=== PATIENT | male | born 1950 | race Caucasian/White ===

== ENCOUNTER 2020-11-07 09:53 | Day surgery (SDC) | payer MEDICARE, BC ==
[~2020-11-07] VITALS: Ht 172.7 cm; Wt 98.9 kg
[2020-11-07] MEDS ORDERED: NAPR220 (10:47)
[2020-11-07] MEDS ORDERED: ATOR10 (10:48)
--- NOTE | 2020-11-07 11:35 | NUR ---
11/07/20 1135 Aaliyah Hassan PT.GIVEN DISCHARGE INSTRUCTIONS FOR GOING HOME. PT.VERBALIZES UNDERSTANDING. PT. VERBALIZES LIVING IN [place] SO WILL CALL HIS TO COME [facility] TO GET FILLED.
--- NOTE | 2020-11-07 12:13 | NUR ---
11/07/20 1213 Armando Carey 1 MG EPI ADDED TO EACH OF THE FIRST 3 BAGS OF LR FOR IRRIGATION PER ORDER.
--- NOTE | 2020-11-07 14:31 | NUR ---
11/07/20 1431 Trinidad Thompson LATE ENTRY: PT DENIED ANY PAIN OR NAUSEA. VS WNL. PT SMILING AND MAKING JOKES IN THE ROOM. PT UNDERSTOOD GOING HOME INTRUCTIONS.
== END 2020-11-07 14:28 | disposition home or self-care (01) ==
LOC: ORSCSDS 09:53
PROVIDERS: Orthopaedic Surgery
PROC: 0LQ14ZZ Repair Right Shoulder Tendon, Percutaneous Endoscopic Approach (ICD-10-PCS; principal; 2020-11-07 11:30)
PROC: 0RNJ4ZZ Release Right Shoulder Joint, Percutaneous Endoscopic Approach (ICD-10-PCS; principal; 2020-11-07 11:30)
PROC: 0RBJ4ZZ Excision of Right Shoulder Joint, Percutaneous Endoscopic Approach (ICD-10-PCS; principal; 2020-11-07 11:30)
DX: M75.121 Complete rotator cuff tear or rupture of right shoulder, not specified as traumatic (principal); M75.21 Bicipital tendinitis, right shoulder; M75.41 Impingement syndrome of right shoulder; I10 Essential (primary) hypertension; G47.33 Obstructive sleep apnea (adult) (pediatric); Z79.899 Other long term (current) drug therapy
CPT/HCPCS: A9270; C1713; J0171; J0690; J1100; J2250; J2405; J2704; J3010

== ENCOUNTER 2021-07-10 07:45 | Day surgery (SDC) | payer MEDICARE, BC ==
[~2021-07-10] VITALS: Ht 172.7 cm; Wt 100.0 kg
[~2021-07-10 07:45] MED LIST: ATOR10 PO; DOXY100 PO; FOLI1 PO; GLUCHON PO; METTREX2.5 PO; NAPR220
[2021-07-10] MEDS ORDERED: NAPR500 PO (08:21)
--- NOTE | 2021-07-10 13:35 | NUR ---
PT TO RECOVERY ROOM POST PROCEDURE. PT AWAKE AND CONVERSING APPROPRIATELY, DENIES PAIN POST PROCEDURE. MONITOR SR 70-80'S, B/P 136/85, AFEBRILE, SPO2 96% RA. R GROIN NO SWELLING/HEMAOTMA, TEGADERM DRSG INTACT; ANGIO SEAL DEPLOYED, BLE PULSES 1+ X 2. PT TAKING SIPS OF FLUIDS WITHOUT ISSUE.
[2021-07-10] MEDS ORDERED: CLOP75 PO (14:10)
[2021-07-10] MEDS ORDERED: XARELTO PO (14:10)
--- NOTE | 2021-07-10 14:51 | NUR ---
PT HOB ELEVATED, SITES UNCHANGED. PT EATING LUNCH WITHOUT ISSUE.
--- NOTE | 2021-07-10 15:51 | NUR ---
PT AMB TO BATHROOM, GAIT STEADY; SITES UNCHANGED WITH ACTIVITY.
--- NOTE | 2021-07-10 16:05 | NUR ---
PT DRESSED SELF WITHOUT ISSUE, SITE UNCHANGED; IV REMOVED-CANNULA INTACT.
--- NOTE | 2021-07-10 16:20 | NUR ---
PT RECEIVED DISCHARGE INSTRUCTIONS, MED LIST AND AFTER CARE INSTRUCTIONS; VERBALIZED GOOD UNDERSTANDING. PT LEFT FACILITY VIA W/C, CONDITION STABLE.
== END 2021-07-10 16:20 | disposition home or self-care (01) ==
LOC: MHTC 07:45
DX: I73.9 Peripheral vascular disease, unspecified (principal); I70.203 Unspecified atherosclerosis of native arteries of extremities, bilateral legs; I10 Essential (primary) hypertension; Z88.8 Allergy status to other drugs, medicaments and biological substances
CPT/HCPCS: 37221; 75716; 75774; 76937; 99152; 99153; A9270; C1725; C1760; C1769; C1874; C1876; C1887; C1894; C2623; C9767; J1644; J2250; J3010; J7030; J7050; Q9967

== ENCOUNTER 2023-06-19 08:28 | Day surgery (SDC) | payer MEDICARE, BC ==
[~2023-06-19] VITALS: Ht 172.7 cm; Wt 98.3 kg
[~2023-06-19 08:28] MED LIST changes: -ATOR10 PO; +ATOR40TA PO; +Aspir 8181 MG PO; +CLOBETASOL EMOL15 G1 TOP; +CLOP75 PO; +Co Q-1030 MG PO; +KETOROLAC TROMET5 ML; +NAPR500 PO; +OFLOXACIN5 M9; +PRED FORTE5 M1; +XARELTO PO
--- NOTE | 2023-06-19 09:41 | NUR ---
06/19/23 0941 Jacqueline Mckenna PROPRACAINE AT 0939 PLEDGET AT 0941
--- NOTE | 2023-06-19 10:25 | NUR ---
06/19/23 1025 Vania Brown 2 DROPS OF PROPARACAINE GIVEN IN PREOP BY DR. BARRON
[2023-06-19 10:51] VITALS: BP 131/79
== END 2023-06-19 11:09 | disposition home or self-care (01) ==
LOC: ORSCSDS 08:28
PROVIDERS: Ophthalmology
PROC: 08RJ3JZ Replacement of Right Lens with Synthetic Substitute, Percutaneous Approach (ICD-10-PCS; principal; 2023-06-19 10:00)
DX: H25.11 Age-related nuclear cataract, right eye (principal); H52.201 Unspecified astigmatism, right eye; G47.33 Obstructive sleep apnea (adult) (pediatric); E78.5 Hyperlipidemia, unspecified; I10 Essential (primary) hypertension; Z79.82 Long term (current) use of aspirin; Z79.899 Other long term (current) drug therapy
CPT/HCPCS: J2250; J3010; J3301; J7040; V2632

== ENCOUNTER 2023-06-26 06:42 | Day surgery (SDC) | payer MEDICARE, BC ==
[~2023-06-26] VITALS: Ht 172.7 cm; Wt 95.7 kg
[2023-06-26 08:20] VITALS: BP 125/79
== END 2023-06-26 08:49 | disposition home or self-care (01) ==
LOC: ORSCSDS 06:42
PROVIDERS: Ophthalmology
PROC: 08RK3JZ Replacement of Left Lens with Synthetic Substitute, Percutaneous Approach (ICD-10-PCS; principal; 2023-06-26 08:00)
DX: H25.12 Age-related nuclear cataract, left eye (principal); Z96.1 Presence of intraocular lens; G47.33 Obstructive sleep apnea (adult) (pediatric); E78.5 Hyperlipidemia, unspecified; I10 Essential (primary) hypertension; E66.9 Obesity, unspecified; Z68.32 Body mass index [BMI] 32.0-32.9, adult; Z87.891 Personal history of nicotine dependence; Z79.82 Long term (current) use of aspirin; Z79.899 Other long term (current) drug therapy
CPT/HCPCS: J2001; J2250; J3010; J3301; J7040; V2632

== ENCOUNTER → 2023-07-18 | Outpatient (CLI) | payer MEDICARE, BC ==
[2023-07-18 15:11] LABS: BASOPHILS ABSOLUTE AUTO 0.07 K/mm3 (0.00-0.23); BASOPHILS PERCENT AUTO 1 % (0-2); EOSINOPHILS PERCENT AUTO 4 % (0-6); Hematocrit 46.3 % (37.0-53.0); Hemoglobin 16.3 g/dL (13.5-17.5); IMMATURE GRAN ABSOLUTE AUTO 0.03 K/mm3 (0.00-0.10); IMMATURE GRAN PERCENT AUTO 1 % (0-1); LYMPHOCYTES ABSOLUTE AUTO 1.43 K/mm3 (0.84-5.20); LYMPHOCYTES PERCENT AUTO 25 % (21-46); MONOCYTES ABSOLUTE AUTO 0.42 K/mm3 (0.16-1.47); MONOCYTES PERCENT AUTO 8 % (4-13); Mean Corpuscular HGB 33.3 pg (26.0-34.0); Mean Corpuscular HGB Conc 35.2 g/dL (31.5-36.5); Mean Corpuscular Volume 95 fL (80-100); NEUTROPHILS ABSOLUTE AUTO 3.48 K/mm3 (1.96-9.15); NEUTROPHILS PERCENT AUTO 62 % (41-73); Platelet Count 214 K/mm3 (150-400); RDW Coefficient Variation 13.7 % (11.7-14.2); RDW Standard Deviation 46.8 fL (35.1-46.3); White Blood Cell Count 5.63 K/mm3 (4.00-11.30)
[2023-07-19 08:11] LABS: A/G RATIO 1.7 (1.2-2.2); BILIRUBIN, TOTAL 0.6 mg/dL (0.0-1.2); CALCIUM, SERUM 9.2 mg/dL (8.6-10.2); CREATININE, SERUM 0.99 mg/dL (0.76-1.27); GLOBULIN, TOTAL 2.6 g/dL (1.5-4.5); POTASSIUM, SERUM 4.1 mmol/L (3.5-5.2)
== END ==
LOC: LAB 13:20 → LAB SHORT 13:20
PROVIDERS: Family Medicine
DX: E78.5 Hyperlipidemia, unspecified (principal); M06.9 Rheumatoid arthritis, unspecified; Z79.899 Other long term (current) drug therapy
CPT/HCPCS: 80053; 85025

== ENCOUNTER → 2025-02-15 | Outpatient (CLI) | payer MEDICARE ==
[2025-02-15 19:23] LABS: BASOPHILS ABSOLUTE AUTO 0.05 K/mm3 (0.00-0.23); BASOPHILS PERCENT AUTO 1 % (0-2); EOSINOPHILS ABSOLUTE AUTO 0.23 K/mm3 (0.00-0.68); EOSINOPHILS PERCENT AUTO 5 % (0-6); Hematocrit 44.4 % (37.0-53.0); Hemoglobin 15.3 g/dL (13.5-17.5); IMMATURE GRAN ABSOLUTE AUTO 0.01 K/mm3 (0.00-0.10); IMMATURE GRAN PERCENT AUTO 0 % (0-1); LYMPHOCYTES ABSOLUTE AUTO 1.40 K/mm3 (0.84-5.20); LYMPHOCYTES PERCENT AUTO 27 % (21-46); MONOCYTES ABSOLUTE AUTO 0.53 K/mm3 (0.16-1.47); MONOCYTES PERCENT AUTO 10 % (4-13); Mean Corpuscular HGB Conc 34.5 g/dL (31.5-36.5); Mean Corpuscular Volume 95 fL (80-100); NEUTROPHILS ABSOLUTE AUTO 2.92 K/mm3 (1.96-9.15); NEUTROPHILS PERCENT AUTO 57 % (41-73); NRBC ABSOLUTE 0.00 K/mm3 (0.00-0.02); NRBC Auto 0.0 /100 WBC (0.0-0.2); Platelet Count 193 K/mm3 (150-400); RDW Coefficient Variation 14.1 % (11.7-14.2); RDW Standard Deviation 48.1 fL (35.1-46.3)
[2025-02-15 19:40] LABS: Alanine Aminotransfer (ALT/SGP 34 U/L (12-78); Albumin, Blood 3.8 g/dL (3.4-5.0); Albumin/Globulin Ratio 1.3 (0.8-1.8); Anion Gap 7 mmol/L (3-11); Aspartate Aminotrans (AST/SGOT 19 U/L (12-37); Bilirubin, Total 0.5 mg/dL (0.1-1.0); Blood Urea Nitrogen 7 mg/dL (8-24); CHOL/HDL RATIO 3.7; CO2, Blood 29 mmol/L (21-32); Calcium, Blood 8.6 mg/dL (8.5-10.1); Chloride, Blood 101 mmol/L (98-108); Cholesterol 146 mg/dL (50-200); Creatinine, Blood 0.74 mg/dL (0.60-1.20); Globulin, Blood 3.0 g/dL (2.2-4.0); Glucose, Blood 110 mg/dL (70-99); HDL Cholesterol 39 mg/dL (>39); LDL/HDL RATIO 1.9; Low Density Lipoprotein Chol 73 mg/dL (0-110); Potassium, Blood 4.2 mmol/L (3.5-5.5); Prostate Specific Antigen 5.930 ng/mL (0.000-4.000); Sodium, Blood 133 mmol/L (136-145); Total Protein, Blood 6.8 g/dL (6.4-8.2); Triglycerides 171 mg/dL (30-160); Very Low Density Lipoprot Chol 34 mg/dL (6-32)
== END ==
LOC: LAB 18:20 → LAB SHORT 18:20
PROVIDERS: Nurse Practitioner Family
DX: Z12.5 Encounter for screening for malignant neoplasm of prostate (principal); Z79.899 Other long term (current) drug therapy
CPT/HCPCS: 80053; 80061; 85025; G0103